=== PATIENT | male | born 1955 | race Caucasian/White ===

== ENCOUNTER 2016-10-14 12:39 | Emergency (ER) | payer OTHER ==
[~2016-10-14] VITALS: Ht 177.8 cm; Wt 115.7 kg
[2016-10-14 13:09] LABS: HEMATOCRIT 43.8 % (38.0-50.0); MCH 29.7 PG (29.0-34.0); MCHC 33.1 G/DL (30.0-36.0); MCV 89.6 FL (86-99); PLATELET COUNT 240 K/uL (156-360); RBC DIS.WIDTH-CV 12.9 % (11.8-14.6); RBC DIS.WIDTH-SD 42.5 % (39-53); RED BLOOD COUNT 4.89 M/uL (4.00-5.50); WHITE BLOOD COUNT 8.3 K/uL (4.1-10.2)
[2016-10-14 13:26] LABS: CHLORIDE 103 mEq/L (99-109); POTASSIUM 3.7 mEq/L (3.7-5.4); SODIUM 142 mEq/L (136-147)
[2016-10-14 13:28] LABS: GLUCOSE 118 mg/dL (70-99)
[2016-10-14 13:29] LABS: ANION GAP 11 MEQ/L (2-14)
[2016-10-14 13:30] LABS: TROP-I INTERPRETATION NEGATIVE; TROPONIN-I < 0.01 ng/mL (0.0-0.30)
[2016-10-14 13:32] LABS: GFR ESTIMATE (CALCULATED) > 59 mL/min/
[2016-10-14 13:33] LABS: UREA NITROGEN (BUN) 13 mg/dL (9-23)
[2016-10-14] MEDS ORDERED: LOSARTAN-HCTZ1 EAC1 PO (14:06)
[2016-10-14] MEDS ORDERED: BYSTOLIC10 MG PO (14:07)
[2016-10-14] MEDS ORDERED: ASPIRIN81 M2 PO (14:07)
[2016-10-14] MEDS ORDERED: ATORVASTATIN CA20 MG PO (14:07)
[2016-10-14] MEDS ORDERED: TRAVATAN Z5 ML BOTH EYES (14:08)
[2016-10-14 15:41] LABS: TROP-I INTERPRETATION NEGATIVE; TROPONIN-I < 0.01 ng/mL (0.0-0.30)
[2016-10-14] MEDS ORDERED: ATIVAN1 MG PO (18:12)
[2016-10-14 18:28] VITALS: BP 143/87
== END 2016-10-14 18:28 | disposition home or self-care (01) ==
LOC: RME 12:39 → EME 12:39 → RME 18:28
PROVIDERS: Nurse Practitioner Family
DX: R00.2 Palpitations (principal); F43.9 Reaction to severe stress, unspecified; Z63.4 Disappearance and death of family member; F10.99 Alcohol use, unspecified with unspecified alcohol-induced disorder; I25.10 Atherosclerotic heart disease of native coronary artery without angina pectoris; K80.20 Calculus of gallbladder without cholecystitis without obstruction; E78.5 Hyperlipidemia, unspecified; Z79.82 Long term (current) use of aspirin
CPT/HCPCS: 71020; 71275; 80048; 84484; 85027; 85379; 93005; 99281; 99285; J7030